=== PATIENT | male | born 1970 | race Caucasian/White ===

== ENCOUNTER 2016-04-05 10:47 | Day surgery (SDC) | payer OTHER ==
[2016-03-21 08:33] VITALS: BMI 35.0
--- NOTE | 2016-03-21 08:56 | PAT Medication Instructions ---
Service Date Mar 21, 2016. Current Home Medication List Ibuprofen (Advil), 400 MG PO PRN Oxycodone Ir (Roxicodone Ir), 5-10 MG PO Q4H PRN for N Medication Instructions For Your Scheduled Surgery Ibuprofen (Advil), 400 MG PO PRN (only takes with migraines) - Take the following medications the morning of surgery with a sip of water: Oxycodone Ir (Roxicodone Ir), 5-10 MG PO Q4H PRN (can take up to four hours prior to surgery if needed) - Take the following medications as scheduled the night before surgery: Oxycodone Ir (Roxicodone Ir), 5-10 MG PO Q4H PRN for N If you have any questions please call us at [phone] or [phone] ( [facility]) or [phone]
[2016-03-21 09:29] LABS: MANUAL MICROSCOPIC REQUIRED? YES; URINE APPEARANCE CLEAR (CLEAR); URINE BILIRUBIN NEG (NEG); URINE COLOR YELLOW; URINE NITRITE NEG (NEG); URINE SPECIFIC GRAVITY >= 1.030 (1.000-1.030); UROBILINOGEN NEG (NEG)
[2016-03-21 09:33] LABS: REVIEW REQ? NO
[2016-03-21 09:35] LABS: URINE BACTERIA NEG (NEG)
[2016-03-21 09:41] LABS: BASO % 0.3 %; BASO ABS # 0.02 K/uL (0-0.2); COMPLETE YES; EOS % 3.3 %; HEMATOCRIT 44.9 % (42-52); IG% 0.3 %; LYMPH % 25.2 %; LYMPH ABS # 1.91 K/uL (1.2-3.4); MEAN CORPUSCULAR HEMOGLOBIN 32.1 pg (25-34); MEAN CORPUSCULAR HGB CONC 35.6 g/dl (32-36); MEAN PLATELET VOLUME 9.2 fL (7.4-10.4); MONO % 12.1 %; NEUT % 58.8 %; PLATELET COUNT 342 K/uL (130-400); RED BLOOD COUNT 4.99 M/uL (4.7-6.1); WHITE BLOOD COUNT 7.59 K/uL (4.8-10.8)
[2016-03-21 09:44] LABS: PROTHROMBIN TIME (PATIENT) 10.8 SECONDS (9.0-12.0)
--- NOTE | 2016-03-21 09:50 | DIAGNOSTIC IMAGING REPORT ---
CHEST PREADMISSION(PA/LAT) CLINICAL HISTORY: PAT preoperative evaluation COMPARISON STUDY: No previous studies for comparison. FINDINGS: The bones soft tissues and hemidiaphragms are normal. The cardiomediastinal silhouette is normal. The lungs are clear. The pulmonary vasculature is normal. IMPRESSION: Negative chest. Electronically signed by: Esau Nunez M.D. 03/21/2016 9:48 AM Dictated Date/Time: 03/21/2016 9:48 AM
[2016-03-21 09:59] LABS: BUN/CREATININE RATIO 16.1 (10-20); CALCIUM 8.9 mg/dl (8.5-10.1); CREATININE 1.1 mg/dl (0.60-1.40); POTASSIUM 3.9 mmol/L (3.5-5.1)
[~2016-04-05] VITALS: Ht 190.5 cm; Wt 129.6 kg
[~2016-04-05 10:47] MED LIST: CEFAZOLIN 3000 MG/65 ML D5W IV SCH; IBUP-1050 PO; LACTATED RINGER'S 1000ML 1,000 ML IV SCH; OXYC1TAB3 PO
[2016-04-05 11:18] VITALS: BP 131/75; PULSE 70; TEMP 36.9; O2SAT 97; Ht 190.5 cm; Wt 129.6 kg
[2016-04-05] MEDS ORDERED: EpHEDrine SULFATE INJ 50 MG/ML AMP IV PRN (11:30)
[2016-04-05] MEDS ORDERED: ONDANSETRON INJ 2 MG/ML 2 ML VIAL IV PRN ×2 (11:30→13:15)
[2016-04-05] MEDS ORDERED: ATROPINE SULFATE 0.1 MG/ML 5ML SYR IV PRN (11:30)
[2016-04-05] MEDS ORDERED: FENTANYL CITRATE INJ 50 MCG/1 ML 2 ML VIAL IV PRN (11:30)
[2016-04-05] MEDS ORDERED: OXYC1TAB3 PO (11:50)
--- NOTE | 2016-04-05 11:52 | Discharge Instructions ---
Discharge Instructions Admission Reason for Admission: Herniated Nucleus Pulposus Discharge Discharge Diagnosis / Problem: Lumbar Herniated disc Discharge Goals Goal(s): Decrease discomfort, Improve function, Increase independence Activity Recommendations Activity Limitations: as noted below Lifting Limitations: no more than 5 pounds Exercise/Sports Limitations: until after follow-up appointment May Resume Sexual Activity: after follow-up appointment Shower/Bathe: may shower/bathe in 3 days . Instructions / Follow-Up Instructions / Follow-Up ACTIVITY RECOMMENDATIONS: SELF CARE INSTRUCTIONS AFTER A LAMINECTOMY 1. No prolonged sitting (less than 30 minutes for the first 3 weeks after surgery). 2. No bending, lifting more than 5 pounds, or twisting (roll like a log when turning in bed). 3. You may shower 3 days after surgery if no drainage from wound. Thoroughly dry wound. Do not soak in the tub. 4. Please walk as much as you can for exercise. Gradually increase the distance that you walk as your endurance increases. 5. You may drive in 7-10 days if you are comfortable and no longer requiring pain medications. SPECIAL CARE INSTRUCTIONS: VERY IMPORTANT TO READ AND REVIEW A. Your surgical incision has been closed with a cosmetic suture under the skin that will dissolve in about 6 weeks. In 14 days, you can use a pair of clean scissors and cut the suture that is left outside of the skin at the ends of your incision. B. Complications are uncommon, but please contact us if you have any signs or symptoms of: 1. wound infection (fever higher than 102.5 degrees F, redness, separation of wound, drainage, or increasing pain from the incision) 2. blood clots in legs (pain, swelling, redness and warmth in legs) 3. urinary tract infection (fever higher than 102.5 degrees, burning upon urination or increased frequency of urination) 4. nerve problems (inability to walk on your toes or heels, numbness, loss of bowel or bladder control) 5. any other symptoms that concern you. C. Please call the office at if you have any concerns or questions about your operation or recovery. MANAGING PAIN AFTER SPINAL SURGERY 1. Narcotic medication is intended for short-term use and will be provided for surgical pain. Surgical pain usually lasts for a period of 4-6 weeks. Narcotic medication includes Percocet, Vicodin, Darvocet, Tylenol #3 or Lortab. 2. Longer-term pain is more appropriately treated with non-narcotic medication such as Tylenol ES. 3. Muscle spasm is not appropriately treated with narcotics. Muscle relaxers such as Soma, Flexeril or Skelaxin can be used along with Tylenol ES. 4. Remember that we all live with some "aches and pains". This is not unusual or uncommon after an injury or as we get older. 5. We will provide appropriate medication within the normal guidelines of their prescribed use. We will also be very cautious and aware of potential abuse and extended duration of patients' medication needs. 6. Please allow 2-3 days to process refills. Prescriptions will not be mailed but must be picked up at the office. FOLLOW UP VISIT: Keep your scheduled follow-up appointment. Any questions, please call the office at . Current Hospital Diet Patient's current hospital diet: Discharge Diet Recommended Diet: Regular Diet Pending Studies Studies pending at discharge: no Medical Emergencies . Who to Call and When: Medical Emergencies: If at any time you feel your situation is an emergency, please call 911 immediately. . Non-Emergent Contact Non-Emergency issues call your: Surgeon Call Non-Emergent contact if: temperature is above 101, your pain is not controlled, your pain is worsening, your pain is unusual for you, your pain is concerning you, wound has increased drainage, wound has increased redness, wound has increased pain, you have any medication questions . "Provider Documentation" section prepared by Flavio Rodriguez. VTE Core Measure Inpt VTE Proph given/why not?: [facility] Drug Monitoring Program Search Results: patient reviewed within database, no issues identified
[2016-04-05] MEDS ORDERED: FENTANYL CITRATE INJ 50 MCG/1 ML 2 ML VIAL ONE ×2 (12:00→12:30)
[2016-04-05] MEDS ORDERED: MIDAZOLAM HCL 1 MG/ML 2ML VIAL ONE (12:00)
--- NOTE | 2016-04-05 12:00 | History and Physical ---
History & Physical Date Apr 05, 2016. Chief Complaint LBP and R leg pain History of Present Illness The patient is a 46 year old male with complaints of above who failed outpatient treatment. He denies L leg pain. He is off work due to pain. no numbness or weakness. His MRI demonstrated L4-5 stenosis and L L5-S1 disc protrusion-that is asymptomatic. no incontinence Past Medical/Surgical History migraines obesity LBP tonsillectomy Additional History Hepatic Disease: No Endocrine Disorder: No Kidney Disease: No Hypertension: No Heart Disease: No Bleeding Tendencies: No Infectious Diseases: No Allergies Coded Allergies: Sulfa Antibiotics (Unverified Allergy, Unknown, HIVES RASH, 04/05/16) Home Medications Scheduled Ibuprofen (Advil), 400 MG PO PRN Scheduled PRN Oxycodone Ir (Roxicodone Ir), 5-10 MG PO Q4H PRN for N Physical Examination Skin: warm/dry Eyes: normal inspection ENT: normal ENT inspection, pharynx normal Head: normocephalic, atraumatic Neck: supple, trachea midline Respiratory/Chest: lungs clear, no respiratory distress Cardiovascular: regular rate, rhythm Back: normal inspection Extremities: normal inspection, normal range of motion Neurologic/Psych: no motor/sensory deficits, alert, normal reflexes, oriented x 3 Diagnosis L4-5 stenosis, RLE radiculopathy Plan of Treatment R L4-5 decompression
[2016-04-05] MEDS ORDERED: BUPIVACAINE/EPINEPHRINE 0.5% MPF 1:200,000 30 ML VIAL ONE (12:01)
[2016-04-05] MEDS ORDERED: THROMBIN FOR SOLN 20000 UNIT KIT ONE (12:01)
[2016-04-05] MEDS ORDERED: BACITRACIN 50000 UNIT VIAL ONE (12:02)
[2016-04-05] MEDS ORDERED: HEPARIN SOD (PORCINE) 1000 UNIT/ML 10 ML VIAL ONE (12:02)
[2016-04-05] MEDS ORDERED: THROMBIN 5000 UNITS KIT ONE (12:02)
[2016-04-05] MEDS ORDERED: HYDROmorphone INJ 2 MG/ML SYR/VIAL ONE (12:57)
[2016-04-05] MEDS ORDERED: FLOSEAL HEMOSTATIC MATRIX 5ML TOP ONE (12:58)
[2016-04-05] MEDS ORDERED: SODIUM CHLORIDE 0.9% 1000ML 1,000 ML IV SCH (13:04)
--- NOTE | 2016-04-05 13:04 | [facility] Post Operative Brief Note ---
Immediate Operative Summary Operative Date Apr 05, 2016. Pre-Operative Diagnosis L4-L5 stenosis, right lower extremity radiculopathy Post-Operative Diagnosis L4-L5 stenosis, right lower extremity radiculopathy Procedure(s) Performed Right L4-L5 Decompression Surgeon Dr. Antonio Foy Decontamination Technician Surgeon(s) Flavio Rodriguez PA-C Estimated Blood Loss min Findings dict Specimens None per surgeon
--- NOTE | 2016-04-05 13:09 | DIAGNOSTIC IMAGING REPORT ---
INTRAOPERATIVE RADIOGRAPHS CLINICAL HISTORY: L4-L5 the compression. Fluoroscopy time: 5 seconds. FINDINGS: 2 spot fluoroscopic views of the lower lumbar spine are presented. A surgical probe projects posteriorly at the L4-L5 disc space. IMPRESSION: Intraoperative images from L4 to L5 decompression as above. Electronically signed by: Fer Dias M.D. 04/05/2016 1:08 PM Dictated Date/Time: 04/05/2016 1:07 PM
[2016-04-05] MEDS ORDERED: MoRPHine SULFATE 4 MG/ML 1 ML CARP\\VIAL IV PRN (13:15)
[2016-04-05] MEDS ORDERED: OXYCODONE/ACETAMINOPHEN 5-325 TAB PO PRN ×2 (13:15)
[2016-04-05] MEDS ORDERED: LIDOCAINE HCL 2% 2 ML VIAL (20MG/ML) ONE (13:20)
[2016-04-05] MEDS ORDERED: GLYCOPYRROLATE INJ 0.2 MG/ML VIAL ONE (13:20)
[2016-04-05] MEDS ORDERED: PROPOFOL IV EMULSION 10 MG/ML 20 ML VIAL IV ONE (13:20)
[2016-04-05] MEDS ORDERED: ROCURONIUM BROMIDE 10 MG/ML 5 ML VIAL ONE (13:20)
[2016-04-05] MEDS ORDERED: KETOROLAC TROMETHAMINE 30 MG/ML VIAL ONE (13:20)
[2016-04-05] MEDS ORDERED: ESMOLOL HCL 10 MG/ML 10 ML VIAL ONE (13:20)
[2016-04-05] MEDS ORDERED: NEOSTIGMINE METHYLSULFATE 1 MG/ML 10ML VIAL ONE (13:20)
[2016-04-05] MEDS ORDERED: ONDANSETRON INJ 2 MG/ML 2 ML VIAL ONE (13:20)
[2016-04-05] MEDS ORDERED: DEXAMETHASONE SOD INJ 4 MG/ML VIAL ONE (13:20)
--- NOTE | 2016-04-05 13:26 | OPERATIVE REPORT ---
DATE OF OPERATION: 04/05/2016 PREOPERATIVE DIAGNOSES: Right L4-L5 spinal stenosis and radiculopathy. POSTOPERATIVE DIAGNOSIS: Same. PROCEDURES: Right L4-L5 decompression. SURGEON: Dr. Foy. EDUCATIONAL RESOURCE COORDINATOR: Flavio Rodriguez PA-C. Please note he participated in all portions of the procedure and was critical for performance of the procedure, participated in positioning, prepping, draping, retraction and wound closure. ANESTHESIA: General endotracheal anesthesia. COMPLICATIONS: None. ESTIMATED BLOOD LOSS: Minimal. OPERATION AND FINDINGS: PROCEDURE: After identification of patient and operative level, he was brought to the OR where he underwent induction of general anesthesia. He was then positioned prone on [facility] OR table with all bony prominences well padded. Care was taken to avoid pressure on the periorbital area. Lumbosacral area was sterilely prepped and draped in usual fashion. Antibiotics were administered. Time-out was performed. Level was confirmed and skin incision was localized with lateral fluoroscopy and a spinal needle. I infiltrated the skin with Marcaine. I made skin incision over the spinous process of L4 and L5 and mobilized the paraspinal musculature over the right L4-L5 interlaminar window. I placed a dermatologist and dermatopathologist retractor and confirmed level with a marker at the L4 lamina using fluoroscopy. I then marked the operative level and created a small laminotomy under the caudal edge of L4, removed medial 25% of the L4-L5 facet and completed decompression with Kerrisons. I palpated the nerve root was free in the lateral recess. I then irrigated with bacitracin solution and reconfirmed level and applied FloSeal for hemostasis. I then closed in layered fashion without a drain. All sponge and needle counts were correct at the end of the case. I attest to the content of the Intraoperative Record and any orders documented therein. Any exceptio ns are noted below.
--- NOTE | 2016-04-05 13:59 | Anesthesiology Progress Note ---
Anesthesia Post Op Note Date & Time Apr 05, 2016 at 13:59 Vital Signs Pain Intensity: 2 Vital Signs Past 12 Hours Date Time Temp Pulse Resp B/P Pulse Ox O2 Delivery O2 Flow Rate FiO2 04/05/16 13:50 72 16 110/56 95 Room Air 04/05/16 13:40 77 16 111/56 99 Mask 10 04/05/16 13:30 67 16 107/59 99 Mask 10 04/05/16 13:21 36.4 92 16 146/90 99 Mask 10 04/05/16 11:18 36.9 70 18 131/75 97 Room Air Notes Mental Status: alert / awake / arousable, participated in evaluation Pt Amnestic to Procedure: Yes Nausea / Vomiting: adequately controlled Pain: adequately controlled Airway Patency, RR, SpO2: stable & adequate BP & HR: stable & adequate Hydration State: stable & adequate Anesthetic Complications: no major complications apparent
[2016-04-05 15:20] VITALS: BP 134/85; PULSE 63; TEMP 36.7; O2SAT 98
== END 2016-04-05 15:35 | disposition home or self-care (01) ==
LOC: C.ACU 10:47
PROVIDERS: ATTEND Orthopaedic Surgery Orthopaedic Surgery of the Spine
DX: M48.06 Spinal stenosis, lumbar region (principal); M54.16 Radiculopathy, lumbar region; Z88.2 Allergy status to sulfonamides; Z90.89 Acquired absence of other organs; E66.9 Obesity, unspecified; Z68.35 Body mass index [BMI] 35.0-35.9, adult